=== PATIENT | male | born 1945 ===

== ENCOUNTER → 2024-06-22 13:00 | Outpatient (BNV) | payer MEDICARE, MEDICAID, SELFPAY | PROVIDERS: PCP Nurse Practitioner Family; Referring Provider Nurse Practitioner Family; Visit Provider Internal Medicine | DX: C20 Malignant neoplasm of rectum (principal); D50.9 Iron deficiency anemia, unspecified | CPT/HCPCS: 99204; G2211 ==

== ENCOUNTER 2024-11-12 07:48 | Outpatient (REF) | payer MEDICARE, MEDICAID, SELFPAY ==
--- NOTE | ~2024-11-12 | CT_ITS ---
CLINICAL HISTORY: Subcentimeter lung nodules seen on PET-CT --- Additional Notes or Special Instructions: History of rectal cancer CT chest without contrast Comparison: None available Findings: No mediastinal mass or lymphadenopathy. Right chest wall central venous catheter with the tip terminating in the superior vena cava. No cardiomegaly. Trace calcified coronary artery disease. Normal size thoracic aorta. Mild calcified atherosclerotic disease. There are bilateral pulmonary nodules. The largest pulmonary nodule is in the right lower lobe and measures 1.2 x 1.0 x 1.4 cm (measured on series 4, image 113 and series 7, image 70). Other pulmonary nodules measure up to 6 mm. Intrapulmonary lymph nodes measure up to 1.0 cm. Calcified granuloma. Trace biapical scarring No pneumothorax or pleural effusion. No acute osseous or soft tissue abnormality. Moderate gynecomastia. No acute pathology in the imaged portion of the upper abdomen. Cholelithiasis. No gallbladder wall thickening or pericholecystic fluid. Bilateral renal cysts. Hyperattenuating 1.3 cm left renal lesion, indeterminate small hiatal hernia. Impression: Pulmonary nodules measure up to 1.4 cm. Given the patient's history of malignancy fleischner guidelines do not apply. Due to the large size of nodule in the right lower lobe and history of malignancy consider further evaluation with PET-CT. Three-month follow-up chest CT would also be appropriate. An addendum can be provided if the prior study is submitted for review. This document has been electronically signed by: Phuong Austin MD on 11/15/2024 16:12:36
== END 2024-11-12 07:49 | disposition home or self-care (01) ==
LOC: HO.CT 07:48
PROVIDERS: Visit Provider Internal Medicine
DX: R91.1 Solitary pulmonary nodule (principal); C20 Malignant neoplasm of rectum
CPT/HCPCS: 71250

== ENCOUNTER → 2024-11-12 07:52 | Outpatient (BNV) | payer MEDICARE, MEDICAID, SELFPAY | PROVIDERS: Visit Provider Radiology Diagnostic Radiology | DX: R91.8 Other nonspecific abnormal finding of lung field (principal) | CPT/HCPCS: 71250 ==

== ENCOUNTER → 2025-02-07 09:02 | Day surgery (SDC) | payer MEDICARE, MEDICAID, SELFPAY ==
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
--- OUTSIDE RECORDS SUMMARY | 2025-01-27 06:44 | XMS_ITS | Clinical Summary ---
Author Organization [facility] Address [address] [place] [address] Phone Care Team Providers Care Community Resource Officer Name Role Phone Unavailable Primary Care Provider Unavailabl e Social History Tobacco Use Types Packs/Day Years Used Date Smoking Tobacco: Never Assessed Sex and Gender Information Value Date Recorded Sex Assigned at Not on file Legal Sex Male 8:48 AM EDT Gender Identity Not on file Sexual Orientation Not on file Plan of Treatment Health Maintenance Due Date Last Done Comments DTaP,Tdap,and Td Vaccines (1 - Tdap) 06/25/1962 Pneumococcal Vaccine: 50+ Ye ars (1 of 1 - PCV) 06/25/1993 Zoster Vaccines (1 of 2) 06/25/1993 RSV Immunization Adult Patie nts (1 - 1-dose 75+ series) 06/25/2018 Depression Screening 03/30/2024 Cholesterol Screening (Lipid Panel) 07/01/2024 Falls Risk Assessment 07/01/2024 Medicare Annual Wellness Visit 07/01/2024 Social Influencers of Health Screening 07/01/2024 COVID-19 Vaccine ( - 2023-2 5 season) 2024 Influenza Vaccine (#1) 2024 HIB Vaccines Aged Out No longer eligi ble based on patient's age to complete this topic HPV Vaccines Aged Out No longer eligi ble based on patient's age to complete this topic Hepatitis A Vaccines Aged Out No long er eligible based on patient's age to complete this topic Hepatitis B Vaccines Aged Out No long er eligible based on patient's age to complete this topic IPV Vaccines Aged Out No longer eligi ble based on patient's age to complete this topic MMR Vaccines Aged Out No longer eligi ble based on patient's age to complete this topic Meningococcal ACWY Vaccine Aged Out N o longer eligible based on patient's age to complete this topic Meningococcal B Vaccine Aged Out No l onger eligible based on patient's age to complete this topic RSV Immunization Patients Un jazmine 20 months Aged Out No longer eligible b ased on patient's age to complete this topic Varicella Vaccines Aged Out No longer eligible based on patient's age to complete this topic Insurance [employer]
--- NOTE | ~2025-02-07 | CT_ITS ---
PROCEDURE: CT GUIDED BIOPSY, LUNG CLINICAL INFORMATION: Multiple lung nodules. History of rectal cancer. COMPARISON: None available. TECHNIQUE: Following explaining CT fluoroscopy guided lung nodule biopsy procedure, benefits and risk, a written consent was obtained. Preliminary CT imaging was obtained. On initial trial for patient to hold breath and perform CT-guided lung biopsy images was unsuccessful on several attempts hence the biopsy was canceled. Patient had difficulty hearing and understanding the procedure even with pension agent present in the room.. This CT examination was performed using dose optimization techniques as appropriate, variously including the following: *Automated exposure control *Adjustment of mA and/or kV according to patient size (this includes techniques or standardized protocols for targeted exams where dose is matched to indication/reason for exam; i.e. extremities or head) *Use of iterative reconstruction technique DLP: 171 mGy. FINDINGS/ CT/CT biopsy lung RT IMPRESSION: CT fluoroscopy guided biopsy was canceled as patient was unable to understand and hold breath during the biopsy or initial imaging. Patient has substantial risk for pneumothorax and collapsed lung and not sure if any tissue could be obtained. CT lung biopsy can be attempted with anesthesia if deemed necessary. Electronically signed by: Eder Bentley MD 02/08/2025 08:08 AM [facility] [place]
[2025-02-07 09:26] VITALS: BP 146/78; PULSE 77; RESP 18; TEMP 36.9; O2SAT 94; BMI 42.8
[2025-02-07 09:53] LABS: MANUAL DIFF FLAG NO
[2025-02-07 10:02] LABS: Hematocrit 34.9 % (42.0-52.0); Hemoglobin 11.1 g/dl (14.0-18.0); Imm Gran Abs Auto 0.00 X10*3/uL (0.00-0.03); Imm Gran Pct Auto 0.0 % (0.0-0.4); Lymphocytes Absolute Auto 0.6 X10*3/uL (1.2-4.9); Mean Corpuscular HGB Conc 31.8 g/dl (31.0-36.0); Mean Corpuscular Hemoglobin 27.8 pg (27.0-33.0); Mean Corpuscular Volume 87.5 fL (80.0-98.0); NRBC Abs Auto 0.000 X10*3/uL (0.0-0.012); NRBC Pct Auto 0.0 /100WBC (0.0-0.2); Platelet Count 153 X10*3/uL (160-400); Red Blood Count 3.99 X10*6/uL (4.60-5.80); White Blood Count 4.8 X10*3/uL (4.8-10.8)
[2025-02-07 10:07] LABS: Anion Gap 11 (12-20); Blood Urea Nitrogen 22 mg/dL (9-16); Calcium 9.2 mg/dL (8.4-10.2); Carbon Dioxide 24 mmol/L (22-29); Chloride 109 mmol/L (96-108); Creatinine Clr Calc Pharmacy 57.1; Estimated Glomerular Filt Rate > 60; Potassium 4.0 mmol/L (3.3-5.1); Sodium 140 mmol/L (135-145)
[2025-02-07 10:08] LABS: INTERNATIONAL NORM RATIO 1.1 (0.9-1.1); Prothrombin Time 13.5 SEC (11.2-13.5)
[2025-02-07 10:10] LABS: Partial Thromboplastin Time 28.5 SEC (26.7-34.1)
--- NOTE | 2025-02-07 10:42 | PC.NURSE ---
spoke to son aware patient doing fine and going to his procedure
--- NOTE | 2025-02-07 11:28 | PC.NURSE ---
b2b outside sales representative present throughout all of pt encounter from pre-op to procedure room; instructions for holding still and holding his breath to facilitate MD being able to safely biopsy lung nodule were explained thoroughly and repeatedly to pt via b2b outside sales representative; pt continued to move frequently and didn't understand to hold his breath when instructed; MD determined it was unsafe for the patient to continue the procedure and it was explained to the pt that the MD would reschedule the procedure with anesthesia to ensure pt's safety. No sedation given or vitals taken; pt transferred to PACU and bedside report gv to ALEXA Chavez
== END ==
LOC: HO.SSS 09:03
PROVIDERS: Radiology Diagnostic Radiology; PCP Nurse Practitioner Family; Visit Provider Internal Medicine
DX: R91.8 Other nonspecific abnormal finding of lung field (principal); Z53.8 Procedure and treatment not carried out for other reasons; C20 Malignant neoplasm of rectum
CPT/HCPCS: 32408; 36415; 80048; 85025; 85610; 85730; J2003; J2250; J3010

== ENCOUNTER → 2025-02-07 09:54 | Outpatient (BNV) | payer MEDICARE, MEDICAID, SELFPAY | PROVIDERS: PCP Nurse Practitioner Family; Visit Provider Radiology Diagnostic Radiology | DX: R91.8 Other nonspecific abnormal finding of lung field (principal) | CPT/HCPCS: 32408 ==